=== PATIENT | female | born 1965 | race African-American/Black ===

== ENCOUNTER 2018-07-17 05:11 | Inpatient (IN) ==
[2018-07-17] MEDS ORDERED: Metoprolol Tartrate 25 MG Tablet PO ONE (05:31)
[2018-07-17] MEDS ORDERED: Chlorhexidine Gluconate 2% 1 Pack (2 Cloths) TOPICAL ONE (05:31)
[2018-07-17] MEDS ORDERED: Vancomycin Inj 1,250 MG in Sodium Chlor 0.9% Inj 250 ML IV.SIG PRN (05:34)
[2018-07-17] MEDS ORDERED: Sodium Chlor 0.9% Inj 500 ML IV.SIG SCH (06:00)
[2018-07-17] MEDS ORDERED: Bupivacaine/Epinephrine Inj 0.25% 50 ML Vial ONE (06:57)
[2018-07-17] MEDS ORDERED: Lidocaine PF 1% Inj 5 ML Syringe OTHER ONE (07:50)
[2018-07-17] MEDS ORDERED: Glycopyrrolate Inj 1 MG/5 ML Syringe IV.PUSH ONE (11:20)
[2018-07-17] MEDS ORDERED: Neostigmine Inj 5 MG/5 ML Syringe IV.PUSH ONE (11:20)
[2018-07-17] MEDS ORDERED: Bisacodyl 10 MG Supp RECTAL PRN (11:22)
[2018-07-17] MEDS ORDERED: Post-op Orders (for Pharmacy) OTHER ONE (11:22)
[2018-07-17] MEDS ORDERED: Promethazine 25 MG Supp RECTAL PRN (11:22)
[2018-07-17] MEDS ORDERED: HYDROmorphone PF Inj 1 MG/ML Ampul IV.PUSH PRN (11:22)
[2018-07-17] MEDS ORDERED: fentaNYL Citrate Inj 100 MCG/2 ML Ampul ONE (11:42)
[2018-07-17] MEDS ORDERED: *morphine SULFATE 10 MG/ML PERIprocedure ONLY ONE (12:01)
[2018-07-17] MEDS: Sod Chloride 0.9% Inj 1,000 ML IV.CONT SCH ×2 (12:08→19:00)
[2018-07-17] MEDS ORDERED: *morphine SULFATE 4 MG/ML PERIprocedure ONLY ONE (13:18)
[2018-07-17] MEDS ORDERED: Dextrose 50% in Water 50 ML Vial IV.PUSH PRN (17:07)
[2018-07-17] MEDS: Insulin NovoLOG Aspart Correctional Sugar Inj SQ SCH ×2 (18:50→20:47)
[2018-07-17] MEDS: Senna/Docusate Sodium 8.6/50 MG Tablet PO SCH (20:37)
[2018-07-18] MEDS: Insulin NovoLOG Aspart Correctional Sugar Inj SQ SCH ×3 (03:36→12:22)
[2018-07-18] MEDS: Sod Chloride 0.9% Inj 1,000 ML IV.CONT SCH ×2 (05:00→08:42)
[2018-07-18 07:33] LABS: Baso % (Auto) 0.3 % (0.0-2.0); Eos # (Auto) 0.1 th/mm3 (0.0-0.4); Eos % (Auto) 2.6 % (0.0-4.0); Hematocrit 38.3 % (35.0-46.0); Hemoglobin 12.5 gm/dL (11.6-15.3); Lymph # (Auto) 1.9 th/mm3 (1.0-4.8); Lymph % (Auto) 36.8 % (9.0-44.0); Mean Corpuscular HGB Conc 32.5 % (32.0-36.0); Mean Corpuscular Hemoglobin 27.2 pg (27.0-34.0); Mean Corpuscular Volume 83.7 fL (80.0-100.0); Mean Platelet Volume 10.6 fL (7.0-11.0); Mono # (Auto) 0.5 th/mm3 (0.0-0.9); Mono % (Auto) 9.8 % (0.0-8.0); Neut # (Auto) 2.6 th/mm3 (1.8-7.7); Neut % (Auto) 50.5 % (16.0-70.0); Platelet Count 207 th/mm3 (150-450); Red Blood Count 4.58 mil/mm3 (4.00-5.30); Red Cell Distribution Width 13.5 % (11.6-17.2); White Blood Count 5.1 th/mm3 (4.0-11.0)
[2018-07-18] MEDS: Senna/Docusate Sodium 8.6/50 MG Tablet PO SCH (08:39)
[2018-07-18] MEDS ORDERED: Enoxaparin Inj 40 MG/0.4 ML Syringe SQ SCH (11:00)
--- NOTE | 2018-07-18 11:02 | P.PNGS ---
Subjective Patient reports: tolerating liquids well, flatus Physical Exam Vital signs: Vital Signs 07/17/18 11:37 07/17/18 11:45 07/17/18 12:00 Temperature 98.2 F Pulse Rate 79 75 83 Respiratory Rate 12 13 12 Blood Pressure 108/54 L 113/59 L 119/59 L Pulse Oximetry 100 100 100 07/17/18 12:15 07/17/18 12:30 07/17/18 12:33 Temperature Pulse Rate 80 83 Respiratory Rate 19 14 15 Blood Pressure 117/55 L 121/59 L Pulse Oximetry 100 100 07/17/18 13:00 07/17/18 13:30 07/17/18 16:00 Temperature 97.7 F 98.0 F Pulse Rate 84 87 89 Respiratory Rate 14 15 18 Blood Pressure 111/57 L 111/57 L 127/55 L Pulse Oximetry 100 99 93 L 07/17/18 20:00 07/17/18 21:17 07/18/18 00:00 Temperature 98.3 F 97.2 F L Pulse Rate 88 81 Respiratory Rate 17 17 17 Blood Pressure 137/73 108/56 L Pulse Oximetry 94 L 96 07/18/18 04:00 07/18/18 04:04 07/18/18 07:54 Temperature 97.2 F L 95 F L Pulse Rate 82 95 H Respiratory Rate 17 18 18 Blood Pressure 104/55 L 149/65 H Pulse Oximetry 97 93 L Intake & Output 07/17/18 07/18/18 07/18/18 18:59 06:59 18:59 Intake Total 1862.5 / 1862.5 1480 / 1480 1000 / 1000 Output Total 350 / 350 Balance 1512.5 / 1512.5 1480 / 1480 1000 / 1000 Weight 100.3 kg Intake: IV 1862.5 / 1862.5 1000 / 1000 1000 / 1000 NS Inj 1,000 ML @ 100 mls/hr IV 1600 / 1600 1000 / 1000 1000 / 1000 .CONT .Q10H [facility] Rx#:[id number] Vancomycin Inj 1,250 MG In NS 262.5 / 262.5 Inj 250 ML @ 250 mls/hr IV.SIG [employer] [facility] Rx#:[id number] Oral 480 / 480 Output: Urine 300 / 300 Estimated Blood Loss 50 / 50 Other: # Voids 2 2 - Constitutional no acute distress - Routine HEENT Exam Head: Present: normocephalic, atraumatic Eye: Present: EOMI, PERRL ENT: Present: mucous membranes moist - Routine Neck Exam Present: supple - Routine Respiratory Exam Present: CTA bilaterally - Routine Cardiovascular Exam Present: RRR, S1, S2 - Routine Abdominal Exam Present: soft, normoactive bowel sounds, tenderness Comments: Incision sites CDI, no hematoma or ecchymosis. Mild pain with palpation. - Routine Extremities Exam Present: full ROM - Routine Neurological Exam Present: alert, oriented X3, moving all extremities, normal tone, normal speech - Detailed Neurological Exam: Coma Scale Eye Opening: Spontaneous Verbal Response: Oriented Motor Response: Obey commands Jyoti Coma Scale Total: 15 - Routine Psychiatric Exam Present: normal affect, normal thought process Results - Labs 07/18/18 06:25 Laboratory Results - last 24 hr 07/17/18 07/17/18 07/18/18 16:56 20:39 03:31 WBC RBC Hgb Hct MCV MCH MCHC RDW Plt Count MPV Neut % (Auto) Lymph % (Auto) [place] % (Auto) Eos % (Auto) Baso % (Auto) Neut # (Auto) Lymph # (Auto) [place] # (Auto) Eos # (Auto) Baso # (Auto) WBC Differential Differential Comment POC Glucose 262 H 244 H 100 07/18/18 07/18/18 06:25 08:35 WBC 5.1 RBC 4.58 Hgb 12.5 Hct 38.3 MCV 83.7 MCH 27.2 MCHC 32.5 RDW 13.5 Plt Count 207 MPV 10.6 Neut % (Auto) 50.5 Lymph % (Auto) 36.8 [place] % (Auto) 9.8 H Eos % (Auto) 2.6 Baso % (Auto) 0.3 Neut # (Auto) 2.6 Lymph # (Auto) 1.9 [place] # (Auto) 0.5 Eos # (Auto) 0.1 Baso # (Auto) 0.0 WBC Differential . Differential Comment Auto diff final POC Glucose 142 H Assessment and Plan - Assessment (1) Abdominal adhesions Code(s): K66.0 - Peritoneal adhesions (postprocedural) (postinfection) Status : Acute Plan: S/p lysis of adhesions. (2) S/P laparoscopic procedure Code(s): Z98.890 - Other specified postprocedural states Status: Acute Plan: POD #2 Ambulating halls, IS Start Full liquid diet today. Tolerating PO well D/C IVF Pain well controlled + Flatus (3) Hx of atrial fibrillation without current medication Code(s): Z86.79 - Personal history of other diseases of the circulatory system Status: Chronic Plan: SR currently, restart Metoprolol 100m BID, PO Mild tachycardia this AM after ambulation, normal rate and rhythm on exam. No dyspnea, or SOB. (4) HTN (hypertension) Code(s): I10 - Essential (primary) hypertension Status: Chronic Plan: Restart BP meds. (5) Type 2 diabetes mellitus, uncontrolled Code(s): E11.65 - Type 2 diabetes mellitus with hyperglycemia Status: Chronic Plan: Continue SSI low dose Novolog. (4) HTN (hypertension) Qualifiers: Hypertension type: essential hypertension Qualified Code(s): I10 - Essential (primary) hypertension (5) Type 2 diabetes mellitus, uncontrolled Qualifiers: Glycemic state: with hyperglycemia Qualified Code(s): E11.65 - Type 2 diabetes mellitus with hyperglycemia
[2018-07-18 13:08] VITALS: BP 134/67; PULSE 99; RESP 16; TEMP 97.5; O2SAT 95
--- NOTE | 2018-07-18 18:50 | MP ---
cc: Hilton Lira MD DATE OF OPERATION: 07/17/2018 PREOPERATIVE DIAGNOSIS: Morbid obesity with a BMI of 39, complicated by essential hypertension, type 2 diabetes. POSTOPERATIVE DIAGNOSES: Morbid obesity with a BMI of 39, complicated by essential hypertension, type 2 diabetes. PROCEDURE: Extensive laparoscopic lysis of adhesions, 2 hours and 45 minutes. SURGEON: Hilton Lira MD ANESTHESIA: General endotracheal anesthesia. ESTIMATED BLOOD LOSS: 10 mL. INDICATIONS: This is a patient with severe obesity, who presented after informed consent for laparoscopic Danii-en-Y gastric bypass. FINDINGS: The patient had extensive adhesions in her intra-abdominal cavity. Adhesions were of small bowel to the abdominal wall as well as interloop small bowel adhesions. As it was contraindicated to perform a sleeve gastrectomy, lysis of adhesions were performed to proceed with the gastric bypass. There was extensive adhesiolysis. As a result, it was decided to do a gastric bypass in stages, for the possibility of a missed bowel injury. SPECIMENS: None. COMPLICATIONS: None. DESCRIPTION OF PROCEDURE: The patient was brought to the operating room, and placed on the operating table in supine position. Bilateral sequential inflation device placed on the lower extremities. General endotracheal anesthesia was instituted. Antibiotics initiated. The abdomen was prepped and draped sterilely. A point in the left upper quadrant was anesthetized with 0.25% Marcaine with epinephrine. A skin incision was made, 5 mm Optiview port placed under direct vision and pneumoperitoneum created. The abdominal cavity was inspected, findings as above. Additional 5 mm port was placed in the left lower quadrant, 5 mm epigastric port was placed, and additional 5 mm left upper quadrant port was placed. Prior to placement of all ports, the skin and peritoneum anesthetized with 0.25% Marcaine and epinephrine. After assessing the abdominal cavity, it was decided to just perform adhesiolysis at this time, with the plan on bringing the patient back at a later date for gastric bypass. Attention focused in the upper abdomen. The ligament of Treitz was identified. The bowel was measured out, and at the point where the jejunojejunostomy would be created, this went into adhesions deep in the pelvis, so this was where we started in the pelvis. The patient was placed in Trendelenburg position. There were extensive adhesions in this region. These were sharply taken down. Adhesions of the omentum to the abdominal wall were taken down. There were adhesions going into multiple loops of bowel that were adhesed to the abdominal wall and the midline. These were sharply taken down and then the interloop adhesions were sharply . There were serosal tears in the small bowel, which was repaired with 3-0 Vicryl sutures. Once this was completed, the bowel was inspected and could be measured from the ileocecal valve to the ligament of Treitz. At this point, the operative field was inspected. There was no evidence of enteric contents spillage or bleeding. CO2 was then released. All ports were removed. All skin incisions closed with 4-0 Monocryl. The abdominal wall was cleaned and a sterile dressing placed. The patient was awakened and taken to the recovery room. MD KARYN Roberts/edwin , 05:10 PM , 05:23 PM
== END 2018-07-18 14:15 | disposition home or self-care (01) ==
LOC: HSDI 05:11 → N07 13:46
PROVIDERS: ADMIT Surgery; ATTEND Surgery

== ENCOUNTER 2018-07-26 07:45 | Inpatient (IN) ==
[2018-07-26] MEDS ORDERED: Metoprolol Tartrate 25 MG Tablet PO ONE (08:15)
[2018-07-26] MEDS ORDERED: Chlorhexidine Gluconate 2% 1 Pack (2 Cloths) TOPICAL ONE (08:15)
[2018-07-26] MEDS ORDERED: Sodium Chlor 0.9% Inj 500 ML IV.CONT ONE (08:15)
[2018-07-26] MEDS ORDERED: Sodium Chloride 0.9% 2 ML Flush PRN IV.FLUSH (08:16)
[2018-07-26] MEDS ORDERED: Vancomycin Inj 1,250 MG in Sodium Chlor 0.9% Inj 250 ML IV.SIG ONE (09:00)
[2018-07-26] MEDS ORDERED: Bupivacaine/Epinephrine Inj 0.25% 50 ML Vial ONE (11:20)
[2018-07-26] MEDS ORDERED: Lidocaine PF 1% Inj 5 ML Syringe OTHER ONE (11:45)
[2018-07-26] MEDS ORDERED: Phenylephrine/NS 1000 MCG/10ML Syringe IV.PUSH ONE (11:45)
[2018-07-26] MEDS ORDERED: Sugammadex Inj 200 MG/2 ML Vial IV.PUSH ONE (12:57)
[2018-07-26] MEDS ORDERED: Bisacodyl 10 MG Supp RECTAL PRN (13:04)
[2018-07-26] MEDS ORDERED: Promethazine 25 MG Supp RECTAL PRN (13:04)
[2018-07-26] MEDS ORDERED: Post-op Orders (for Pharmacy) OTHER ONE (13:04)
[2018-07-26] MEDS ORDERED: Naloxone Inj 0.4 MG/ML Vial IV.PUSH PRN (13:11)
[2018-07-26] MEDS ORDERED: *morphine SULFATE 10 MG/ML PERIprocedure ONLY ONE (13:38)
[2018-07-26] MEDS ORDERED: Morphine Inj 30 MG/30 ML PCA.VIAL PCA ONE (13:39)
[2018-07-26] MEDS ORDERED: fentaNYL Citrate Inj 100 MCG/2 ML Ampul ONE (13:39)
[2018-07-26] MEDS: Sod Chloride 0.9% Inj 1,000 ML IV.CONT SCH (14:53)
[2018-07-26] MEDS: Morphine Inj 30 MG/30 ML PCA.VIAL PCA PRN ×2 (14:54→21:27)
[2018-07-26] MEDS: Senna/Docusate Sodium 8.6/50 MG Tablet PO SCH (21:31)
[2018-07-26] MEDS: Sodium Chloride 0.9% 2 ML Flush BID IV.FLUSH SCH (22:27)
[2018-07-27] MEDS: Vancomycin Inj 1,000 MG in Sodium Chlor 0.9% Inj 250 ML IV.SIG SCH ×2 (00:30→11:27)
[2018-07-27] MEDS: Sod Chloride 0.9% Inj 1,000 ML IV.CONT SCH ×4 (01:00→23:46)
[2018-07-27] MEDS: Sodium Chloride 0.9% 2 ML Flush BID IV.FLUSH SCH ×3 (07:45→21:00)
[2018-07-27 07:51] LABS: Baso % (Auto) 0.3 % (0.0-2.0); Eos # (Auto) 0.1 th/mm3 (0.0-0.4); Eos % (Auto) 0.9 % (0.0-4.0); Hematocrit 36.3 % (35.0-46.0); Lymph # (Auto) 1.6 th/mm3 (1.0-4.8); Lymph % (Auto) 22.7 % (9.0-44.0); Mean Corpuscular Hemoglobin 27.4 pg (27.0-34.0); Mean Corpuscular Volume 83.1 fL (80.0-100.0); Mean Platelet Volume 9.5 fL (7.0-11.0); Mono # (Auto) 0.5 th/mm3 (0.0-0.9); Mono % (Auto) 6.7 % (0.0-8.0); Neut % (Auto) 69.4 % (16.0-70.0); Platelet Count 275 th/mm3 (150-450); Red Blood Count 4.37 mil/mm3 (4.00-5.30); White Blood Count 7.2 th/mm3 (4.0-11.0)
[2018-07-27 08:12] LABS: Glomerular Filtration Rate Greater Than 89 mL/min (>89)
[2018-07-27 08:20] LABS: Anion Gap 8 meq/L (5-15); Blood Urea Nitrogen 8 mg/dL (7-18); Calcium 8.4 mg/dL (8.5-10.1); Carbon Dioxide 25.7 meq/L (21.0-32.0); Chloride 107 meq/L (98-107); Glucose,Random 115 mg/dL (74-106); Potassium 4.1 meq/L (3.5-5.1); Sodium 141 meq/L (136-145)
[2018-07-27] MEDS: Senna/Docusate Sodium 8.6/50 MG Tablet PO SCH ×2 (09:14→20:59)
[2018-07-27] MEDS: Pantoprazole Inj 40 MG Vial IV.PUSH SCH (11:26)
[2018-07-27] MEDS: Enoxaparin Inj 40 MG/0.4 ML Syringe SQ SCH (11:30)
[2018-07-28] MEDS: Sod Chloride 0.9% Inj 1,000 ML IV.CONT SCH ×2 (06:02→18:41)
[2018-07-28] MEDS: Morphine Inj 30 MG/30 ML PCA.VIAL PCA PRN (07:30)
[2018-07-28] MEDS: Pantoprazole Inj 40 MG Vial IV.PUSH SCH (09:10)
[2018-07-28] MEDS: Senna/Docusate Sodium 8.6/50 MG Tablet PO SCH ×2 (09:10→21:47)
[2018-07-28] MEDS: Sodium Chloride 0.9% 2 ML Flush BID IV.FLUSH SCH ×2 (09:11→21:43)
--- NOTE | 2018-07-28 11:20 | P.PNGS ---
Subjective Patient reports: no new complaints, pain is less, flatus Physical Exam Vital signs: Vital Signs 07/27/18 12:00 07/27/18 16:00 07/27/18 20:00 Temperature 97.4 F L 97.7 F 97.7 F Pulse Rate 76 69 69 Respiratory Rate 17 17 18 Blood Pressure 113/57 L 101/54 L 125/56 L Pulse Oximetry 97 100 96 07/28/18 00:20 07/28/18 04:20 07/28/18 08:00 Temperature 97.0 F L 97.2 F L 97.6 F Pulse Rate 66 67 75 Respiratory Rate 20 18 17 Blood Pressure 110/56 L 119/57 L 119/59 L Pulse Oximetry 99 97 99 Intake & Output 07/27/18 07/28/18 07/28/18 18:59 06:59 18:59 Intake Total 2298 / 2298 2191.5 / 2191.5 Output Total 300 / 300 1500 / 1500 Balance 1997 / 1997 691.5 / 691.5 Weight 106 kg Intake: IV 1250 / 1250 1711.5 / 1711.5 NS Inj 1,000 ML @ 100 mls/hr IV 1000 / 1000 1449 / 1449 .CONT .Q10H [facility] Rx#:[id number] Vancomycin Inj 1,000 MG In NS 250 / 250 Inj 250 ML @ 250 mls/hr IV.SIG Q12H [facility] Rx#:[id number] Oral 1048 / 1048 480 / 480 Output: Urine 300 / 300 1500 / 1500 - Routine Abdominal Exam Present: soft (incisional tenderness.c/d/i) Results - Labs 07/27/18 07:12 07/27/18 07:12 Laboratory Results - last 24 hr 07/27/18 07/27/18 07/27/18 11:26 18:05 23:46 POC Glucose 92 142 H 152 H 07/28/18 05:36 POC Glucose 102 Assessment and Plan - Plan POD 2 dx lap OBED for bowel obstruction, +flatus no bm PLAN Clears - advance to full liquid pain control oob ambulate await bm
[2018-07-28] MEDS: Enoxaparin Inj 40 MG/0.4 ML Syringe SQ SCH (11:37)
--- NOTE | 2018-07-28 14:33 | P.PNGS ---
Subjective Patient reports: flatus, no bowel movement Interval history: Denies SOB, chest pain, or palpitations, pain and nausea well controlled. Physical Exam Vital signs: Vital Signs 07/27/18 16:00 07/27/18 20:00 07/28/18 00:20 Temperature 97.7 F 97.7 F 97.0 F L Pulse Rate 69 69 66 Respiratory Rate 17 18 20 Blood Pressure 101/54 L 125/56 L 110/56 L Pulse Oximetry 100 96 99 07/28/18 04:20 07/28/18 08:00 07/28/18 12:00 Temperature 97.2 F L 97.6 F 97.1 F L Pulse Rate 67 75 72 Respiratory Rate 18 17 16 Blood Pressure 119/57 L 119/59 L 122/58 L Pulse Oximetry 97 99 95 Intake & Output 07/27/18 07/28/18 07/28/18 18:59 06:59 18:59 Intake Total 2298 / 2298 2191.5 / 2191.5 Output Total 300 / 300 1500 / 1500 Balance 1997 / 1997 691.5 / 691.5 Weight 106 kg Intake: IV 1250 / 1250 1711.5 / 1711.5 NS Inj 1,000 ML @ 100 mls/hr IV 1000 / 1000 1449 / 1449 .CONT .Q10H [facility] Rx#:[id number] Vancomycin Inj 1,000 MG In NS 250 / 250 Inj 250 ML @ 250 mls/hr IV.SIG Q12H [facility] Rx#:[id number] Oral 1048 / 1048 480 / 480 Output: Urine 300 / 300 1500 / 1500 - Routine Respiratory Exam Present: CTA bilaterally - Routine Cardiovascular Exam Present: RRR, S1, S2 - Routine Abdominal Exam Present: soft, tenderness, distended Comments: normal postoperative tenderness, sites C/D/I - Routine Neurological Exam Present: oriented X3 Results - Labs 07/27/18 07:12 07/27/18 07:12 Laboratory Results - last 24 hr 07/27/18 07/27/18 07/28/18 18:05 23:46 05:36 POC Glucose 142 H 152 H 102 07/28/18 11:18 POC Glucose 124 H Assessment and Plan - Plan POD #1 lysis of adhesions, partial small bowel obstruction Clear liquids as tolerated today Ambulate PRN Continue DIRECTOR SPEECH and IVF Await bowel movement. Code Status: Full Discussed Condition With: Patient, RN
[2018-07-29] MEDS: Sod Chloride 0.9% Inj 1,000 ML IV.CONT SCH (04:31)
--- NOTE | 2018-07-29 07:40 | P.PNGS ---
Subjective Patient reports: no new complaints, feels better, flatus, bowel movement Physical Exam Vital signs: Vital Signs 07/28/18 08:00 07/28/18 12:00 07/28/18 16:00 Temperature 97.6 F 97.1 F L 98.0 F Pulse Rate 75 72 88 Respiratory Rate 17 16 17 Blood Pressure 119/59 L 122/58 L 105/56 L Pulse Oximetry 99 95 97 07/28/18 20:00 07/29/18 00:08 07/29/18 04:05 Temperature 97.7 F 97.5 F L 97.4 F L Pulse Rate 88 73 70 Respiratory Rate 20 20 18 Blood Pressure 123/58 L 116/57 L 112/56 L Pulse Oximetry 96 94 L 96 Intake & Output 07/28/18 07/29/18 07/29/18 18:59 06:59 18:59 Intake Total 1986 / 1986 1480 / 1480 Output Total 1400 / 1400 1000 / 1000 Balance 587 / 587 480 / 480 Weight 106 kg Intake: IV 551 / 551 1000 / 1000 NS Inj 1,000 ML @ 100 mls/hr IV 551 / 551 1000 / 1000 .CONT .Q10H [facility] Rx#:[id number] Oral 1436 / 1436 480 / 480 Output: Urine 1400 / 1400 1000 / 1000 Other: Date of Last Bowel Movement 07/28/18 # Bowel Movements 1 - Routine Respiratory Exam Present: CTA bilaterally - Routine Cardiovascular Exam Present: RRR - Routine Abdominal Exam Present: soft (incisional tenderness) Results - Labs 07/27/18 07:12 07/27/18 07:12 Laboratory Results - last 24 hr 07/28/18 07/28/18 07/28/18 11:18 17:56 23:52 POC Glucose 124 H 133 H 178 H 07/29/18 05:28 POC Glucose 112 H Assessment and Plan - Plan POD 3 dx lap OBED for bowel obstruction, +flatus +bm PLAN reg soft diet pain control oob ambulate d.c home today f/u with Dr. Simmons 1 week
[2018-07-29 08:34] VITALS: BP 126/59; PULSE 80; RESP 17; TEMP 97.8; O2SAT 98
[2018-07-29 09:27] LABS: Baso % (Auto) 0.5 % (0.0-2.0); Eos # (Auto) 0.2 th/mm3 (0.0-0.4); Eos % (Auto) 3.2 % (0.0-4.0); Hematocrit 38.2 % (35.0-46.0); Hemoglobin 12.4 gm/dL (11.6-15.3); Lymph # (Auto) 2.5 th/mm3 (1.0-4.8); Lymph % (Auto) 46.9 % (9.0-44.0); Mean Corpuscular HGB Conc 32.5 % (32.0-36.0); Mean Corpuscular Hemoglobin 27.5 pg (27.0-34.0); Mean Corpuscular Volume 84.4 fL (80.0-100.0); Mean Platelet Volume 9.5 fL (7.0-11.0); Mono # (Auto) 0.4 th/mm3 (0.0-0.9); Mono % (Auto) 8.2 % (0.0-8.0); Neut # (Auto) 2.2 th/mm3 (1.8-7.7); Neut % (Auto) 41.2 % (16.0-70.0); Platelet Count 266 th/mm3 (150-450); Red Blood Count 4.52 mil/mm3 (4.00-5.30); Red Cell Distribution Width 13.2 % (11.6-17.2); White Blood Count 5.4 th/mm3 (4.0-11.0)
[2018-07-29] MEDS: Sodium Chloride 0.9% 2 ML Flush BID IV.FLUSH SCH (09:38)
[2018-07-29] MEDS: Pantoprazole Inj 40 MG Vial IV.PUSH SCH (09:38)
[2018-07-29] MEDS: Senna/Docusate Sodium 8.6/50 MG Tablet PO SCH (09:38)
[2018-07-29 10:03] LABS: Anion Gap 9 meq/L (5-15); Calcium 8.7 mg/dL (8.5-10.1); Carbon Dioxide 29.4 meq/L (21.0-32.0); Chloride 106 meq/L (98-107); Glomerular Filtration Rate Greater Than 89 mL/min (>89); Glucose,Random 100 mg/dL (74-106); Potassium 3.4 meq/L (3.5-5.1); Sodium 144 meq/L (136-145)
[2018-07-29 10:09] LABS: Blood Urea Nitrogen 3 mg/dL (7-18)
--- NOTE | 2018-08-03 14:30 | MP ---
cc: Hilton Lira MD DATE OF OPERATION: 07/26/2018 PREOPERATIVE DIAGNOSIS: Morbid obesity with a BMI of 439. POSTOPERATIVE DIAGNOSES: 1. Morbid obesity with a BMI of 439. 2. Small-bowel obstruction. 3. Epigastric hernia. PROCEDURE: Laparoscopic lysis of adhesion, laparoscopic repair of ventral hernia. SURGEON: Hilton Lira MD. ANESTHESIA: General endotracheal anesthesia. FINDINGS: The patient had adhesions occluding the small bowel from the omentum to the root of the small bowel mesentery. These adhesions appeared to be obstructing the patient. She also had some interloop adhesions at the site of obstruction. It was felt that the interloop adhesions were not the cause of the patient's bowel obstruction. As the patient was obstructed, it was decided not to perform a gastric bypass at this time, just to lyse the adhesions and fix the ventral defect. SPECIMENS: None. COMPLICATIONS: None. DESCRIPTION OF PROCEDURE: After the patient was brought to the operating room, placed on the operating table in supine position. Bilateral sequential inflation device placed on the lower extremities. General anesthesia instituted. Antibiotics initiated. The abdomen was prepped and draped sterilely. The patient's prior port sites were anesthetized with 0.25% Marcaine with epinephrine. They were all open and laparoscopic trocars were placed under direct vision. CO2 was insufflated. The abdominal cavity was inspected. Findings as above. Obstructive adhesions were using Harmonic scalpel. It was decided not to try to release the interloop adhesions for risk of bowel injury. The attention was then focused on the ventral defect. Stab incision was made in this region. A 2-0 Vicryl was used to close the defect in a [id number] manner. The operative field was inspected. Hemostasis was present. CO2 was released. All ports were removed. All skin incisions closed with 4-0 Monocryl. The abdominal wall was cleaned and a sterile dressing placed. The patient was awakened and taken to the recovery room. Hilton Lira MD [email or web address]/ts , 01:09 PM , 01:17 PM
== END 2018-07-29 11:54 | disposition home or self-care (01) ==
LOC: HSDI 07:45 → N07 14:33
PROVIDERS: ADMIT Surgery; ATTEND Surgery